=== PATIENT | female | born 1990 | race Two or more races ===

== ENCOUNTER 2019-11-17 10:05 | Inpatient (IN) | payer BC ==
[~2019-11-17] VITALS: Ht 165.1 cm; Wt 108.0 kg
[2019-11-17] MEDS ORDERED: PREN-96 PO (10:43)
[2019-11-17] MEDS ORDERED: LACTATED RINGER'S 1,000 ML IV SCH (10:56)
[2019-11-17] MEDS ORDERED: LACT. RINGERS/OXYTOCIN 20UNITS 1,000 ML IV SCH (10:56)
[2019-11-17] MEDS ORDERED: LIDOCAINE 2%HCL (LOCAL ANESTH.) INJ 20ML MDV ID ONE (11:00)
[2019-11-17] MEDS ORDERED: WITCH HAZEL-GLYCERIN PAD TOP PRN (11:00)
[2019-11-17] MEDS ORDERED: PHISODERM TOP SOLN 240ML BTL TOP PRN (11:00)
[2019-11-17] MEDS ORDERED: CARBOPROST TROMETHAMINE 250 MCG/1ML VIAL IM PRN (11:00)
[2019-11-17] MEDS ORDERED: METHYLERGONOVINE MALEATE 0.2 MG/ML AMP IM PRN (11:00)
[2019-11-17] MEDS ORDERED: NALBUPHINE HCL 10 MG/1ml INJECTION IV PRN (11:00)
[2019-11-17] MEDS ORDERED: DERMOPLAST 60ML BOTTLE TOP PRN (11:00)
[2019-11-17 11:26] LABS: Alcohol, Urine < 3.0 mg/dL (0-10); Amphetamine Screen, Urine NEGATIVE (NEGATIVE); Barbiturate Scree,Urine NEGATIVE (NEGATIVE); Benzodiazephine Screen, Urine NEGATIVE (NEGATIVE); Cannabinoid Screen, Urine NEGATIVE (NEGATIVE); Cocaine Screen, Urine NEGATIVE (NEGATIVE); Opiate Scree,Urine NEGATIVE (NEGATIVE); Phencyclidine Screen, Urine NEGATIVE (NEGATIVE)
[2019-11-17 11:41] LABS: Basophils # (auto) 0 10 ^3/uL (0-0.2); Basophils % (auto) 0.3 % (0.0-2.0); Eosinophils # (auto) 0.1 10 ^3/uL (0-0.8); Eosinophils % (auto) 0.5 % (0.0-7.0); Hematocrit 40.8 % (36.0-46.0); Hemoglobin 13.3 g/dL (12.2-16.2); Lymphocytes # (auto) 1.4 10 ^3/uL (0.4-5.4); Mean Corpuscular Hemoglobin 29.2 pg (28.0-32.0); Mean Corpuscular Hgb Conc. 32.5 g/dL (32.0-36.0); Mean Corpuscular Volume 89.9 fL (80.0-100.0); Monocytes # (auto) 0.7 10 ^3/uL (0-1.3); Monocytes % (auto) 5.9 % (0.0-12.0); Neutrophils # (auto) 9.5 10 ^3/uL (1.6-8.6); Neutrophils % (auto) 81.3 % (37.0-80.0); Platelet Count (auto) 242 10^3/uL (140-450); Red Blood Cells 4.54 10^6/uL (4.0-5.20); Red Cell Distribution Width 14.8 % (11.8-14.3); White Blood Cell 11.7 10^3/uL (4.4-10.8)
[2019-11-17 11:51] LABS: Urine Bacteria MANY /hpf (None Seen); Urine Blood 3+ /uL (Negative); Urine Hyaline Cast FEW /lpf (0 - 2); Urine Mucus FEW (None Seen); Urine Specific Gravity 1.021 (1.001-1.035); Urine WBC 301 /hpf (0 - 5); Urine WBC Clumps PRESENT /hpf (None Seen)
[2019-11-17 11:58] LABS: INR 0.91 (0.9-1.15); Partial Thromboplastin Time 23.6 sec (23.0-31.2)
[2019-11-17 12:01] LABS: Albumin 2.7 g/dL (3.4-5.0); Calcium 8.8 mg/dL (8.5-10.1); Potassium 3.8 mmol/L (3.5-5.1)
[2019-11-17 12:04] LABS: BUN/Creatinine Ratio 15.8; Bilirubin, Total 0.3 mg/dL (0.2-1.0); Total Protein 6.4 g/dL (6.4-8.2)
[2019-11-17] MEDS ORDERED: LACTATED RINGER'S 1,000 ML IV ONE (14:58)
[2019-11-17] MEDS ORDERED: NALOXONE HCL 0.4 MG/ML VIAL IV ONE (15:00)
[2019-11-17] MEDS ORDERED: ROPIVACAINE HCL 100 ML EPI SCH (15:00)
[2019-11-17] MEDS ORDERED: fentaNYL CITRATE 100 MCG/2 ML VL IV ONE (15:00)
[2019-11-17] MEDS ORDERED: ePHEDrine SULFATE 50 MG/ML AMP IV ONE (15:00)
[2019-11-17] MEDS ORDERED: LIDOCAINE HCL 2 %PF INJ 10ML AMP IJ ONE (15:00)
[2019-11-17] MEDS ORDERED: ePHEDrine SULFATE 50 MG/ML AMP ONE (15:34)
[2019-11-17] MEDS ORDERED: EPINEPHrine HCL 1 MG/10 ML SYRG IV ONE (16:19)
[2019-11-17] MEDS ORDERED: BUTORPHANOL TARTRATE 2 MG/1 ML VIAL IV ONE (19:00)
[2019-11-17] MEDS ORDERED: LIDOCAINE 2%HCL (LOCAL ANESTH.) INJ 20ML MDV ID PRN (20:45)
[2019-11-18] MEDS ORDERED: ACETAMINOPHEN 325 MG TAB PO PRN (02:30)
[2019-11-18 03:30] VITALS: BP 114/58
[2019-11-18 06:09] LABS: RPR Non Reactive (Non Reactive)
[2019-11-18 06:50] VITALS: BP 106/57
[2019-11-18] MEDS: DOCUSATE SOD 100 MG CAP PO SCH ×2 (10:16→21:35)
[2019-11-18] MEDS: IBUPROFEN 600 MG TAB PO PRN ×3 (10:16→21:35)
[2019-11-18 11:10] VITALS: BP 95/53
[2019-11-18 15:00] VITALS: BP 99/55
[2019-11-18 19:00] VITALS: BP 114/63
[2019-11-18 23:00] VITALS: BP 113/64
[2019-11-19] MEDS: IBUPROFEN 600 MG TAB PO PRN (02:53)
[2019-11-19 03:00] VITALS: BP 104/59
[2019-11-19 07:00] VITALS: BP 107/60
[2019-11-19] MEDS: DOCUSATE SOD 100 MG CAP PO SCH (09:58)
[2019-11-19 11:00] VITALS: BP 104/57
== END 2019-11-19 13:15 | disposition home or self-care (01) | DRG 807 ==
LOC: LDRP 10:05 → OBSVTOIN 10:55
PROVIDERS: ADMIT Specialist; ATTEND Specialist
PROC: 10E0XZZ Delivery of Products of Conception, External Approach (ICD-10-PCS; principal; 2019-11-17)
PROC: 0W8NXZZ Division of Female Perineum, External Approach (ICD-10-PCS; 2019-11-17)
DX: O77.0 Labor and delivery complicated by meconium in amniotic fluid (principal); Z37.0 Single live birth; O26.53 Maternal hypotension syndrome, third trimester; Z3A.38 38 weeks gestation of pregnancy; Z20.828 Contact with and (suspected) exposure to other viral communicable diseases; O69.81X0 Labor and delivery complicated by cord around neck, without compression, not applicable or unspecified
CPT/HCPCS: 36415; 51702; 59025; 59409; 62282; 80053; 80307; 81001; 81002; 84112; 84550; 85025; 85610; 85730; 86592; 86850; 86900; 86901; 87426; 94760; 96365; 96366; 96374; G0378; J2590

== ENCOUNTER → 2022-01-23 | Outpatient (CLI) | payer BC ==
[~2022-01-23] MED LIST: PREN-96 PO
== END | disposition home or self-care (01) ==
LOC: LAB 10:38
PROVIDERS: ATTEND Obstetrics & Gynecology
DX: Z34.80 Encounter for supervision of other normal pregnancy, unspecified trimester (principal); Z3A.00 Weeks of gestation of pregnancy not specified
CPT/HCPCS: 36415; 84144; 84702

== ENCOUNTER → 2022-01-27 | Outpatient (CLI) | payer BC ==
[2022-01-27 12:20] LABS: Basophils # (auto) 0 10 ^3/uL (0-0.2); Basophils % (auto) 0.4 % (0.0-2.0); Eosinophils # (auto) 0.1 10 ^3/uL (0-0.8); Eosinophils % (auto) 0.8 % (0.0-7.0); Hematocrit 40.9 % (36.0-46.0); Hemoglobin 13.7 g/dL (12.2-16.2); Lymphocytes # (auto) 1.7 10 ^3/uL (0.4-5.4); Lymphocytes % (auto) 18.2 % (10.0-50.0); Mean Corpuscular Hemoglobin 29.5 pg (28.0-32.0); Mean Corpuscular Hgb Conc. 33.5 g/dL (32.0-36.0); Mean Corpuscular Volume 88.1 fL (80.0-100.0); Monocytes # (auto) 0.6 10 ^3/uL (0-1.3); Monocytes % (auto) 6.1 % (0.0-12.0); Neutrophils # (auto) 7.2 10 ^3/uL (1.6-8.6); Neutrophils % (auto) 74.5 % (37.0-80.0); Red Blood Cells 4.65 10^6/uL (4.0-5.20); Red Cell Distribution Width 14.7 % (11.8-14.3); White Blood Cell 9.6 10^3/uL (4.4-10.8)
[2022-01-27 13:18] LABS: Alcohol, Urine < 3.0 mg/dL (0-10); Amphetamine Screen, Urine NEGATIVE (NEGATIVE); Barbiturate Scree,Urine NEGATIVE (NEGATIVE); Benzodiazephine Screen, Urine NEGATIVE (NEGATIVE); Cannabinoid Screen, Urine NEGATIVE (NEGATIVE); Cocaine Screen, Urine NEGATIVE (NEGATIVE); Opiate Scree,Urine NEGATIVE (NEGATIVE); Phencyclidine Screen, Urine NEGATIVE (NEGATIVE)
[2022-01-28 08:06] LABS: RPR Non Reactive (Non Reactive)
== END | disposition home or self-care (01) ==
LOC: LAB 10:13
PROVIDERS: ATTEND Obstetrics & Gynecology
DX: Z34.80 Encounter for supervision of other normal pregnancy, unspecified trimester (principal); N39.0 Urinary tract infection, site not specified; Z31.430 Encounter of female for testing for genetic disease carrier status for procreative management; Z3A.00 Weeks of gestation of pregnancy not specified
CPT/HCPCS: 36415; 80307; 84112; 84702; 85025; 86592; 86703; 86762; 86850; 86900; 86901; 87086; 87340

== ENCOUNTER 2022-09-21 09:55 | Inpatient (IN) | payer BC ==
[~2022-09-21] VITALS: Ht 165.1 cm; Wt 108.9 kg
[2022-09-21] MEDS ORDERED: LIDOCAINE 2%HCL (LOCAL ANESTH.) INJ 20ML MDV ONE (10:04)
[2022-09-21] MEDS ORDERED: LACT. RINGERS/OXYTOCIN 20UNITS 1,000 ML IV ONE (10:04)
[2022-09-21] MEDS ORDERED: LIDOCAINE 2%HCL (LOCAL ANESTH.) INJ 20ML MDV IJ PRN (10:15)
[2022-09-21] MEDS ORDERED: LACTATED RINGER'S 1,000 ML IV SCH (10:15)
[2022-09-21] MEDS ORDERED: OXYTOCIN 20 UNT in SODIUM CHLORIDE 0.9% 1,000 ML IV ONE (10:15)
[2022-09-21] MEDS ORDERED: LACT. RINGERS/OXYTOCIN 20UNITS 500 ML IV ONE (10:15)
[2022-09-21 11:07] LABS: Basophils # (auto) 0 10 ^3/uL (0-0.2); Basophils % (auto) 0.2 % (0.0-2.0); Eosinophils # (auto) 0 10 ^3/uL (0-0.8); Eosinophils % (auto) 0.1 % (0.0-7.0); Hematocrit 42.4 % (36.0-46.0); Hemoglobin 13.9 g/dL (12.2-16.2); Lymphocytes # (auto) 1.7 10 ^3/uL (0.4-5.4); Lymphocytes % (auto) 11.3 % (10.0-50.0); Mean Corpuscular Hemoglobin 29.3 pg (28.0-32.0); Mean Corpuscular Hgb Conc. 32.9 g/dL (32.0-36.0); Mean Corpuscular Volume 89.1 fL (80.0-100.0); Monocytes # (auto) 0.7 10 ^3/uL (0-1.3); Monocytes % (auto) 4.5 % (0.0-12.0); Neutrophils # (auto) 12.8 10 ^3/uL (1.6-8.6); Neutrophils % (auto) 83.9 % (37.0-80.0); Nucleated Red Blood Cells % 0.1 %; Red Blood Cells 4.75 10^6/uL (4.0-5.20); Red Cell Distribution Width 15.2 % (11.8-14.3); White Blood Cell 15.2 10^3/uL (4.4-10.8)
[2022-09-21] MEDS ORDERED: ONDANSETRON ODT 4 MG TAB PO PRN (11:15)
[2022-09-21 11:23] LABS: INR 0.93 (0.9-1.15); Partial Thromboplastin Time 24.5 SEC (24.5-34.5)
[2022-09-21 11:27] LABS: Albumin 2.9 g/dL (3.4-5.0); Calcium 9.2 mg/dL (8.5-10.1); Potassium 4.1 mmol/L (3.5-5.1)
[2022-09-21 11:30] LABS: BUN/Creatinine Ratio 14.9 (10.0-20.0); Bilirubin, Total 0.2 mg/dL (0.2-1.0); Total Protein 6.8 g/dL (6.4-8.2)
[2022-09-21] MEDS: IBUPROFEN 800 MG TAB PO SCH ×2 (11:47→19:12)
[2022-09-21] MEDS: DERMOPLAST 60ML BOTTLE TOP PRN (13:25)
[2022-09-21] MEDS: WITCH HAZEL-GLYCERIN PAD TOP PRN (13:25)
[2022-09-21] MEDS: PHISODERM TOP SOLN 240ML BTL TOP PRN (13:26)
[2022-09-21 15:26] VITALS: BP 127/61
[2022-09-21] MEDS: ACETAMINOPHEN 325 MG TAB PO PRN (16:37)
[2022-09-21 18:55] VITALS: BP 121/58
[2022-09-21] MEDS ORDERED: ACET-1882 PO (21:09)
[2022-09-21] MEDS ORDERED: PREN-96 PO (21:09)
[2022-09-21] MEDS ORDERED: IBUP-1455 PO (21:09)
[2022-09-21 21:22] LABS: Urine Bacteria FEW /hpf (None Seen); Urine Blood 3+ /uL (Negative); Urine Budding Yeast FEW /hpf (None Seen); Urine Hyaline Cast FEW /lpf (0 - 2); Urine Mucus FEW (None Seen); Urine Specific Gravity 1.015 (1.001-1.035); Urine WBC 118 /hpf (0 - 5)
[2022-09-21 21:53] LABS: Alcohol, Urine < 3.0 mg/dL (0-10); Amphetamine Screen, Urine NEGATIVE (NEGATIVE); Barbiturate Scree,Urine NEGATIVE (NEGATIVE); Benzodiazephine Screen, Urine NEGATIVE (NEGATIVE); Cannabinoid Screen, Urine NEGATIVE (NEGATIVE); Cocaine Screen, Urine NEGATIVE (NEGATIVE); Opiate Scree,Urine NEGATIVE (NEGATIVE); Phencyclidine Screen, Urine NEGATIVE (NEGATIVE)
[2022-09-21] MEDS ORDERED: DOCUSATE SOD 100 MG CAP PO SCH (22:00)
[2022-09-21 23:00] VITALS: BP 92/51
[2022-09-22 03:00] VITALS: BP 99/57
[2022-09-22] MEDS: ACETAMINOPHEN 325 MG TAB PO PRN (03:16)
[2022-09-22 06:37] VITALS: BP 111/57
[2022-09-22 07:11] LABS: Basophils # (auto) 0 10 ^3/uL (0-0.2); Basophils % (auto) 0.2 % (0.0-2.0); Eosinophils # (auto) 0.1 10 ^3/uL (0-0.8); Eosinophils % (auto) 0.5 % (0.0-7.0); Hematocrit 36.2 % (36.0-46.0); Hemoglobin 11.9 g/dL (12.2-16.2); Lymphocytes % (auto) 16.4 % (10.0-50.0); Mean Corpuscular Hemoglobin 29.6 pg (28.0-32.0); Mean Corpuscular Hgb Conc. 32.9 g/dL (32.0-36.0); Mean Corpuscular Volume 89.9 fL (80.0-100.0); Monocytes # (auto) 0.6 10 ^3/uL (0-1.3); Monocytes % (auto) 5.4 % (0.0-12.0); Neutrophils # (auto) 9.3 10 ^3/uL (1.6-8.6); Neutrophils % (auto) 77.5 % (37.0-80.0); Red Blood Cells 4.02 10^6/uL (4.0-5.20); Red Cell Distribution Width 15.2 % (11.8-14.3)
[2022-09-22 11:10] VITALS: BP 110/58
[2022-09-22] MEDS: PHISODERM TOP SOLN 240ML BTL TOP PRN (14:58)
[2022-09-22] MEDS: WITCH HAZEL-GLYCERIN PAD TOP PRN (14:58)
[2022-09-22] MEDS: DERMOPLAST 60ML BOTTLE TOP PRN (14:59)
[2022-09-22 15:01] VITALS: BP 90/66
[2022-09-23 08:06] LABS: RPR Non Reactive (Non Reactive)
== END 2022-09-22 15:14 | disposition home or self-care (01) | DRG 807 ==
LOC: LDRP 09:55 → OBSVTOIN 10:12 → LDRP 16:52
PROVIDERS: ADMIT Obstetrics & Gynecology; ATTEND Obstetrics & Gynecology
PROC: 10E0XZZ Delivery of Products of Conception, External Approach (ICD-10-PCS; principal; 2022-09-21)
PROC: 0KQM0ZZ Repair Perineum Muscle, Open Approach (ICD-10-PCS; 2022-09-21)
DX: O77.0 Labor and delivery complicated by meconium in amniotic fluid (principal); Z37.0 Single live birth; Z3A.39 39 weeks gestation of pregnancy; O69.81X0 Labor and delivery complicated by cord around neck, without compression, not applicable or unspecified; O70.1 Second degree perineal laceration during delivery
CPT/HCPCS: 36415; 59025; 59409; 80053; 80307; 81001; 85025; 85610; 85730; 86592; 86850; 86900; 86901; 94760; 96365; 96366; G0378; J2590